=== PATIENT | female | born 1955 | race Caucasian/White ===

== ENCOUNTER 2016-08-04 13:17 | Emergency (ER) | payer OTHER ==
[2016-08-04 13:26] VITALS: BP 135/84; PULSE 64; TEMP 98.1; BMI 23.1
[2016-08-04] MEDS ORDERED: IBUPROFEN 600 MG TABLET (FP) PO ONE ×2 (13:28→13:33)
[2016-08-04] MEDS ORDERED: TETANUS AND DIPHTHERIA TOXOID 0.5 ML DISP.SYRIN IM ONE (13:30)
--- NOTE | 2016-08-04 14:13 | PDOC ---
History of Present Illness - General Chief Complaint: Injury Stated Complaint: TABLE FELL ON TOE Time Seen by Provider: 08/04/16 13:28 History Source: Patient, Spouse Exam Limitations: No Limitations - History of Present Illness Initial Comments: 08/04/16 14:08 CHIEF COMPLAINT: "I dropped a glass table onto my right fourth and fifth toes." HISTORY OF PRESENT ILLNESS: 60-year-old Female presents complaining of a laceration and injury to her right fourth and fifth toes. She has recently been doing a lot of running and she got a blister on the dorsal surface of her right fourth toe. The blister was intact until a heavy glass table fell today, rupturing the blister on the dorsal surface of the right fourth toe as well as causing an injury to the right fourth and fifth toes. She denies any falls. She denies any other injuries. Her last tetanus booster was more than 5 years ago. REVIEW OF SYSTEMS: No fever or chills No falls Positive injury to the right great toe No other injuries Past History - Past Medical History Allergies/Adverse Reactions: Allergies Allergy/AdvReac Type Severity Reaction Status Date / Time latex Allergy Swelling Verified 08/04/16 13:21 Home Medications: Ambulatory Orders Anastrozole [Arimidex] 1 mg PO DAILY tablet 05/19/12 Levothyroxine [Synthroid -] 112 mcg PO DAILY 10/11/14 Cancer: Yes (LEFT BREAST) Hypercholesterolemia: Yes Thyroid Disease: Yes (HYPO) - Surgical History Neurologic Surgery: Yes (RIGHT THUMB) - Psycho/Social/Smoking Cessation Hx Anxiety: No Suicidal Ideation: No Smoking Status: No Smoking History: Never smoked Number of Cigarettes Smoked Daily: 0 Information on smoking cessation initiated: No Hx Alcohol Use: (moderate) Drug/Substance Use Hx: No Substance Use Type: Alcohol *Physical Exam - Vital Signs Last Vital Signs Temp Pulse Resp BP Pulse Ox 98.1 F 64 18 135/84 98 08/04/16 13:20 08/04/16 13:20 08/04/16 13:20 08/04/16 13:20 08/04/16 13:20 - Physical Exam Comments: 08/04/16 14:10 GENERAL: The patient is awake, alert, and fully oriented, in no acute distress. HEAD: Normal with no signs of trauma. EYES: Pupils equal, round and reactive to light, extraocular movements intact, sclera anicteric, conjunctiva clear. EXTREMITIES: The right foot is normal proximal to the toes. The first second and third toes are without swelling or tenderness. The fourth toe has a disrupted blister over the dorsal surface with some minor localized bleeding. The fifth toe is tender to touch, but the skin is intact. Posterior tibial and dorsalis pedis pulses are normal. Capillary refill is one second in the toes. Sensation is intact. NEUROLOGICAL: Normal speech, normal gait. PSYCH: Normal mood, normal affect. SKIN: Warm, Dry, normal turgor, no rashes or lesions noted other than the findings in the fourth and fifth toe. ED Treatment Course - RADIOLOGY Radiology Studies Ordered: Category Date Time Status TOE(S) RIGHT [RAD] Stat Radiology 08/04/16 13:29 Taken - Medications Given in the ED: ED Medications Discontinued Medications Generic Name Dose Route Start Last Admin Trade Name Freq PRN Reason Stop Dose Admin Ibuprofen 600 mg 08/04/16 13:28 08/04/16 13:30 Motrin - PO 08/04/16 13:29 600 mg ONCE ONE Administration Tetanus/Diphtheria Toxoids Adsorbed 0.5 ml 08/04/16 13:30 08/04/16 13:53 Decavac - IM 08/04/16 13:31 0.5 ml ONCE ONE Administration Medical Decision Making - Medical Decision Making 08/04/16 14:11 Patient presents with a ruptured blister to the right fourth toe and a contusion to the right fourth and fifth toes. X-rays were ordered and then reviewed by me. There is no visible fracture or dislocation of the right third , fourth, or fifth toes. Impression: Contusion to the right foot toes. Rupture of a previous blister over the right fourth toe. No evidence of infection. Plan: The right fourth toe was cleansed with saline irrigation. The skin of the blister was placed back over the open wound. Bacitracin ointment was applied with a dry sterile dressing. Patient was advised elevation, ibuprofen, and follow-up for any signs of infection. *DC/Admit/Observation/Transfer Diagnosis at time of Disposition: Contusion of right foot Qualifiers: Encounter type: initial encounter Qualified Code(s): S90.31XA - Contusion of right foot, initial encounter - Discharge Dispostion Disposition: HOME Condition at time of disposition: Stable Admit: No - Patient Instructions Printed Discharge Instructions: DI for Open Laceration Additional Instructions: You were evaluated today for injury to your right fourth and fifth toes. The x- ray shows no fracture. The blister was ruptured, so the skin should be kept clean with soap and water, then after drying the area, apply bacitracin ointment , a thin layer, and then a dressing to keep it clean. Elevate your foot to speed healing. Watch for any signs of infection. Go to the doctor right away if you develop any signs of a wound infection such as redness, swelling, pus, or red streaks. Change the dressing once a day to examine for infection. It is okay to shower, but you should not swim or immerse the wound in a bathtub.
== END 2016-08-04 14:20 | disposition home or self-care (01) ==
LOC: FER 13:17
PROC: 3E0234Z Introduction of Serum, Toxoid and Vaccine into Muscle, Percutaneous Approach (ICD-10-PCS; principal; 2016-08-04)
DX: S90.31XA Contusion of right foot, initial encounter (principal); W20.8XXA Other cause of strike by thrown, projected or falling object, initial encounter; Y93.89 Activity, other specified; Y92.009 Unspecified place in unspecified non-institutional (private) residence as the place of occurrence of the external cause; Z85.3 Personal history of malignant neoplasm of breast; E78.00 Pure hypercholesterolemia, unspecified; E03.9 Hypothyroidism, unspecified
CPT/HCPCS: 73660-TC; 99283-25

== ENCOUNTER 2019-04-14 17:00 | Emergency (ER) | payer OTHER ==
--- NOTE | 2019-04-14 17:28 | PDOC ---
History of Present Illness - General Chief Complaint: Blood Sugar Problem Stated Complaint: BLOOD SUGAR ISSUES Time Seen by Provider: 04/14/19 17:05 History Source: Patient Exam Limitations: No Limitations - History of Present Illness Initial Comments: 04/14/19 17:22 63 y/o female new onset diabetic having her sugars monitored by Electro Mechanical Engineer has been having fluctuating sugars, as low as 43. Feeling better now. Her helps her these last two weeks and is afraid for him to leave since he watches her from having a hypoglycemic episode. Patient needs a letter for flying. No N/V/d/c. No SOB or chest pain currently. 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 Allergy Facial Uncoded 11/05/16 11:04 swelling Home Medications: Ambulatory Orders Insulin Aspart [Novolog] 6 unit SQ BID 04/14/19 Levothyroxine [Synthroid -] 112 mcg PO DAILY 04/14/19 Trisiba Insulin Pen 14 units SQ HS 04/14/19 metFORMIN HCL [Metformin HCl ER] 1 tab PO BID 04/14/19 Cancer: Yes (LEFT BREAST) Hypercholesterolemia: Yes Thyroid Disease: Yes (HYPO) - Surgical History Neurologic Surgery: Yes (RIGHT THUMB) - Psycho Social/Smoking Cessation Hx Smoking Status: No Smoking History: Never smoked Number of Cigarettes Smoked Daily: 0 Hx Alcohol Use: (moderate) Drug/Substance Use Hx: No Substance Use Type: Alcohol Review of Systems - Review of Systems Able to Perform ROS?: Yes Is the patient limited Mohawk proficient: No Constitutional: No: Chills, Fever Respiratory: No: Cough, Shortness of Breath Cardiac (ROS): No: Chest Pain Endocrine: No: Excessive Sweating All Other Systems: Reviewed and Negative *Physical Exam - Physical Exam General Appearance: Yes: Nourished, Appropriately Dressed, Apparent Distress HEENT: positive: EOMI, JOVANY, Normal ENT Inspection, Normal Voice, Symmetrical, Pharynx Normal Neck: positive: Trachea midline, Normal Thyroid, Supple. negative: Tender, Rigid Respiratory/Chest: positive: Lungs Clear, Normal Breath Sounds. negative: Chest Tender, Respiratory Distress Cardiovascular: positive: Regular Rhythm, Regular Rate, S1, S2. negative: Edema , JVD, Murmur Vascular Pulses: Femoral (R): 4+, Femoral (L): 4+, Carotid (R): 4+, Carotid (L) : 4+, Dorsalis-Pedis (R): 4+, Doralis-Pedis (L): 4+ Gastrointestinal/Abdominal: positive: Normal Bowel Sounds, Flat, Soft. negative : Tender, Organomegaly, Pulsatile Mass Lymphatic: negative: Adenopathy, Tenderness, Other Musculoskeletal: positive: Normal Inspection. negative: CVA Tenderness Extremity: positive: Normal Capillary Refill, Normal Inspection, Normal Range of Motion Integumentary: positive: Normal Color, Dry, Warm Neurologic: positive: tool and die repairer II-XII NML intact, Fully Oriented, Alert, Normal Mood/ Affect, Normal Response, Motor Strength /5 Discharge - Discharge Information Problems reviewed: Yes Clinical Impression/Diagnosis: Hypoglycemia associated with diabetes Condition: Stable Disposition: HOME - Admission No - Follow up/Referral - Patient Discharge Instructions Patient Printed Discharge Instructions: DI for Hypoglycemia Additional Instructions: Continue to monitor sugars Follow up with Electro Mechanical Engineer Patient is a new onset diabetic who has hypoglycemic episodes. Only only caregiver at this time is her who is scheduled to fly. She would need him around to watch her for these episodes when they occur until her situation is stabilized. - Post Discharge Activity
[2019-04-14 17:30] VITALS: BP 134/101; PULSE 75; TEMP 98; BMI 23.6
== END 2019-04-14 17:38 | disposition home or self-care (01) ==
LOC: FER 17:00
DX: E11.65 Type 2 diabetes mellitus with hyperglycemia (principal); E78.00 Pure hypercholesterolemia, unspecified; E03.9 Hypothyroidism, unspecified; Z79.4 Long term (current) use of insulin; Z91.040 Latex allergy status; Z91.048 Other nonmedicinal substance allergy status; Z85.3 Personal history of malignant neoplasm of breast
CPT/HCPCS: 99281-25

== ENCOUNTER 2019-06-28 20:20 | Emergency (ER) | payer OTHER ==
[2019-06-28 20:45] VITALS: BP 145/95; PULSE 75; TEMP 97.4; BMI 23.6
--- NOTE | 2019-06-28 20:47 | PDOC ---
Documentation entered by Justino Greene SCRIBE, acting as scribe for Cecile Fonseca MD. Cecile Fonseca MD: This documentation has been prepared by the Jc perez Angel, SCRIBE, under my direction and personally reviewed by me in its entirety. I confirm that the documentation accurately reflects all work, treatment, procedures, and medical decision making performed by me. History of Present Illness - General Chief Complaint: Nausea/Vomiting Stated Complaint: VOMITED & HAS FLU LIKE ILLNESS Time Seen by Provider: 06/28/19 20:31 History Source: Patient Exam Limitations: No Limitations - History of Present Illness Initial Comments: 06/28/19 21:07 The patient is a 63 year old female with a significant past medical history of recently diagnosed with Type 1 diabetes, hypothyroidism who presents to the ED with nausea/vomiting since 10am this morning. The patient states this morning she felt very tired and slept most of the day on and off. The patient claims to have a flu but denies any flu like symptoms and has not been tested for the flu. She denies any cough or congestion, fevers or chills.The patient states she has trouble keeping food down as she tried to eat a roll of bread and experienced one episode of NBNB vomiting an hour later. The patient claims to feel better since her arrival at the ED. Patient denies fever/chills, chest pain, SOB or any other symptoms. 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 Facial Uncoded 11/05/16 11:04 swelling Home Medications: Ambulatory Orders Insulin Aspart [Novolog] 0 unit SQ AC PRN 04/14/19 Levothyroxine [Synthroid -] 112 mcg PO DAILY 04/14/19 Atorvastatin Ca [Lipitor] 20 mg PO DAILY 06/28/19 Calcium Carbonate [Calcium] 500 mg PO DAILY 06/28/19 Cholecalciferol (Vitamin D3) [Vitamin D3 -] 1,000 unit PO DAILY 06/28/19 Insulin Degludec [Tresiba Flextouch U-100] 0 unit SQ HS 06/28/19 Ondansetron [Zofran *Odt*] 4 mg SL TID PRN #9 od.tablet 06/28/19 Cancer: Yes (LEFT BREAST) COPD: No Diabetes: Yes Hypercholesterolemia: Yes Thyroid Disease: Yes (HYPO) - Surgical History Neurologic Surgery: Yes (RIGHT THUMB) - Psycho Social/Smoking Cessation Hx Smoking Status: No Smoking History: Never smoked Number of Cigarettes Smoked Daily: 0 Hx Alcohol Use: No Drug/Substance Use Hx: No Substance Use Type: Alcohol Review of Systems - Review of Systems Able to Perform ROS?: Yes Comments:: 06/28/19 21:08 Constitutional: +generalized malaise. no fevers or chills. HEENT: no headache or dizziness. No congestion. No visual/hearing disturbances. CVS: no cp or syncope. Resp: no sob. No cough. Gastrointestinal:+ Nausea/vomiting. no abdominal pain, diarrhea. Genitourinary: no urinary sx, hematuria. MUSCULOSKELETAL: No joint pain and swelling. No neck or back pain. SKIN: no redness or skin changes, no discharge, no rash. No wounds. Hematologic: no easy bruising/bleeding. NEUROLOGIC: No headache, dizziness, LOC or altered mental status. No weakness, numbness or tingling. Psych: no anxiety or depression Allergic/Immunologic: no allergies All other systems reviewed and negative, or as documented in HPI. 06/28/19 21:46 *Physical Exam - Vital Signs Last Vital Signs Temp Pulse Resp BP Pulse Ox 97.4 F L 75 16 145/95 100 06/28/19 20:26 06/28/19 20:26 06/28/19 20:26 06/28/19 20:26 06/28/19 20:26 - Physical Exam 06/28/19 21:24 General: Well appearing, awake and alert, NAD. HEENT: NCAT, PERRL, EOMI, clear conjunctiva, anicteric, moist mucus membranes, clear oropharynx, no oral lesions.. Neck: neck supple, FROM Resp: CTAB, normal and even respirations, no respiratory distress CVS: RRR, no murmurs, 2+ peripheral pulses throughout, no peripheral edema Abdomen: soft, NTND, no rebound or guarding. No CVAT. Back: nontender, normal inspection and ROM MSK: no edema, JERRY x4, ROM intact. No clubbing or cyanosis. normal bulk and tone. Extremities: no calf tenderness Neuro: alert, oriented appropriately; no focal neurologic deficits Psych: Calm and cooperative Skin: warm and well perfused, cap refill <2 sec, normal color Heart Score/ECG Review #1 ECG reviewed & interpreted by me at: 21:10 General ECG Interpretation: Sinus Rhythm, Normal Rate, Normal Intervals Compared to previous ECG there are: No significant change 06/28/19 21:47 EKG normal sinus rhythm 65 bpm, no interval abnormalities, narrow QRS, ST and T wave segments and morphology normal. ED Treatment Course - LABORATORY CBC & Chemistry Diagram: 06/28/19 21:00 06/28/19 21:15 Medical Decision Making - Medical Decision Making 06/28/19 20:45 Vital Signs Temp Pulse Resp BP Pulse Ox 97.4 F L 75 16 145/95 100 06/28/19 20:26 06/28/19 20:26 06/28/19 20:26 06/28/19 20:26 06/28/19 20:26 A/P 63 YOF with hypothyroidism, type 1 DM, presenting with n/v x 1 episode tonight. she had episode of hypoglycemia in 50s per her [place], had juice and roll, then went to sleep no trauma no infectious sx pt concerned she has flu also considered part of ddx, ACS, arrhythmia, electrolyte/metabolic derangements, dehydration pt has declined EKG, despite me explaining for atypical sx including n/v, in diabetic female. pt adamantly refuses as she states "I am not having a heart attack" and will call her to discuss. will check cardiac profile, basic labs and lytes. 06/28/19 21:47 Patient relented to EKG which is normal sinus rhythm without ST elevations or depressions, unremarkable and nonischemic Laboratory results including cardiac enzymes are within normal limits. Electrolytes and glucose are also normal. She is mildly hemoconcentrated consistent with her poor hydration status today, we will give her p.o. fluids. flu neg, reassuring given zofran x1 with improvement, mack PO intake without difficulty. no vomiting no e/o DKA no infectious sx. no cp or sob, remains well appearing instructions to f/u on her diabetic regimen keep up with hydration prn zofran for the nausea/vomiting adequate rest and hydration advised Pt to be discharged in stable condition. Patient made aware of clinical impression, treatment recommendations and disposition plan, return precautions discussed (including but not limited to new or persistent/worsening symptoms, pain, fevers, or signs of infection, chest pain, respiratory distress, inability to tolerate oral intake, dehydration, syncope, or neurologic changes). Follow up with PMD and/or specialist as recommended, follow up information provided, take medications as instructed for duration of time. continue with supportive care, avoid triggers and precipitants. All questions answered to patient's satisfaction and expressed understanding and comfort with this. At the time of discharge, the patient is alert, clinically improved, tolerating po and verbalizes understanding of instructions, satisfied with the care received and felt comfortable with the plan. Patient does not suffer from an acute life- threatening medical condition at this time and is safe for outpatient follow-up . 06/28/19 23:56 Discharge - Discharge Information Problems reviewed: Yes Clinical Impression/Diagnosis: Nausea & vomiting Qualifiers: Vomiting type: unspecified Vomiting Intractability: non-intractable Qualified Code(s): R11.2 - Nausea with vomiting, unspecified Condition: Good Disposition: HOME - Admission No - Additional Discharge Information Prescriptions: Ondansetron [Zofran *Odt*] 4 mg SL TID PRN #9 od.tablet PRN Reason: nausea vomiting - Follow up/Referral Referrals: Essie Woods [Primary Care Provider] - - Patient Discharge Instructions Patient Printed Discharge Instructions: DI for Nausea -- Adult, DI for Vomiting -- Adult Additional Instructions: 1) Please follow-up with your primary care doctor in the next 1-2 days. Please call tomorrow for for any urgent issues. 2) You were given a copy of the tests performed today. Please bring the results with you and review them with your primary care doctor. Your laboratory results were normal, 3) If you have any worsening of symptoms or any other concerns please return to the ED immediately. Return if worsening symptoms including fevers, headache, vomiting, visual or hearing disturbances, abdominal pain, chest pain, shortness of breath, syncope, dehydration, inability to take things by mouth/vomiting, altered mental status, or worsening concerning symptoms. 4) Please continue taking your home medications as directed. your medications on discharge include zofran three times a day as needed for the nausea . do not drink alcohol with your medications. Stay well hydrated and rest adequately. Make an appointment. If you cannot follow-up with your primary care doctor please return to the ED - Post Discharge Activity Work/Back to School Note: Back to Work
[2019-06-28 21:17] LABS: HEMATOCRIT 50.2 % (32.4-45.2); HEMOGLOBIN 16.3 GM/dl (10.7-15.3); MCH 30.7 pg (25.7-33.7); MCHC 32.4 g/dl (32.0-36.0); MEAN CELL VOLUME 94.8 fl (80-96); MEAN PLT VOLUME 7.6 fl (7.5-11.1); PLATELET COUNT 300 K/MM3 (134-434); RDW 12.8 % (11.6-15.6); WHITE BLOOD COUNT 8.1 K/mm3 (4.0-10.8)
[2019-06-28 21:31] LABS: ALBUMIN 4.3 g/dl (3.4-5.0); BILIRUBIN,TOTAL 1.1 mg/dl (0.2-1); CALCIUM 9.2 mg/dl (8.5-10); CREATININE 0.7 mg/dl (0.55-1.3); POTASSIUM 4.2 mmol/L (3.5-5.1); TOT PROT 7.2 g/dl (6.4-8.2)
[2019-06-28] MEDS ORDERED: SODIUM CHLORIDE 0.9% 500 ML INFUS.BAG IV ONE (21:48)
[2019-06-28] MEDS ORDERED: ONDANSETRON *ODT* 4 MG TABLET SL ONE ×2 (21:52→22:59)
[2019-06-28] MEDS ORDERED: ONDANSETRON *ODT* 4 MG TABLET ONE ×2 (22:01→23:03)
[2019-06-28 22:06] LABS: PLATELET ESTIMATE ADEQUATE
--- NOTE | 2019-06-29 11:02 | EKG ---
Test Reason : Blood Pressure : / mmHG Vent. Rate : 065 BPM Atrial Rate : 065 BPM P-R Int : 170 ms QRS Dur : 076 ms QT Int : 412 ms P-R-T Axes : 054 057 060 degrees QTc Int : 428 ms NORMAL SINUS RHYTHM NORMAL ECG NO PREVIOUS ECGS AVAILABLE Confirmed by Gary Sebastian MD ([id number]) on 06/29/2019 11:02:23 AM Referred By: Confirmed By:Gary Sebastian MD
== END 2019-06-28 23:09 | disposition home or self-care (01) ==
LOC: FER 20:20
PROC: 3E0337Z Introduction of Electrolytic and Water Balance Substance into Peripheral Vein, Percutaneous Approach (ICD-10-PCS; principal; 2019-06-28)
DX: R11.2 Nausea with vomiting, unspecified (principal); E10.9 Type 1 diabetes mellitus without complications; E03.9 Hypothyroidism, unspecified; E78.00 Pure hypercholesterolemia, unspecified; Z85.3 Personal history of malignant neoplasm of breast
CPT/HCPCS: 36415; 80053; 82550; 84484; 85025; 87804; 93005; 99284-25; Q0162